=== PATIENT | male | born 1995 | race Two or more races ===

== ENCOUNTER 2018-03-16 20:11 | Emergency (ER) | payer OTHER ==
[~2018-03-16] VITALS: Ht 170.2 cm; Wt 77.1 kg
[~2018-03-16 20:11] MED LIST: ALBUTEROL2.5 MG/3 M INH
[2018-03-16] MEDS ORDERED: Ketorolac 30mg Inj IM ONE (20:30)
[2018-03-16] MEDS ORDERED: IBUPROFEN600 MG ORAL (21:36)
[2018-03-16 21:45] VITALS: BP 113/73
--- NOTE | 2018-03-17 15:48 | Diagnostic Imaging Report ---
Indications: Reason For Exam: PAIN Technique: Two views of the left femur Comparison: None Findings: There is a bone island within the proximal femur. No acute fractures. No dislocations. No radiopaque foreign body Impression: Negative
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
== END 2018-03-16 21:47 | disposition home or self-care (01) ==
LOC: EDBD 20:11 → EMR 20:42
DX: S70.12XA Contusion of left thigh, initial encounter (principal); V43.52XA Car driver injured in collision with other type car in traffic accident, initial encounter; Y92.410 Unspecified street and highway as the place of occurrence of the external cause; J45.909 Unspecified asthma, uncomplicated
CPT/HCPCS: 73552; 96372; 99283; J1885